=== PATIENT | female | born 1940 | race Caucasian/White ===

== ENCOUNTER 2018-05-16 17:25 | Inpatient (IN) | payer MEDICARE ==
[~2018-05-16] VITALS: Ht 163.8 cm; Wt 74.1 kg
[2018-05-16] MEDS ORDERED: KEPPRA500 MG PO (17:34)
[2018-05-16] MEDS ORDERED: BAYER CHEWABLE81 MG PO (17:34)
[2018-05-16] MEDS ORDERED: VITAMIN D31000 UNIT PO (17:34)
[2018-05-16] MEDS ORDERED: CALCIUM (17:35)
[2018-05-16] MEDS ORDERED: VITAMIN B-122500 MCG PO (17:35)
[2018-05-16 18:54] LABS: BASOPHILS 0.4 % (0-2); EOSINOPHILS 7.2 % (0-7); HEMATOCRIT 38.8 % (36.0-48.0); HEMOGLOBIN 13.3 g/dL (12-16); IMMATURE GRANULOCYTES 0.2 % (0-5); LYMPHOCYTES 27.6 % (15-50); MCH 30.9 pg (26.0-34.0); MCHC 34.3 g/dL (31.0-37.0); MEAN PLATELET VOLUME 10.5 fL (7.4-10.4); MONOCYTES 8.1 % (2-11); NEUTROPHILS 56.5 % (40-80); PLATELET COUNT 253 10x3/uL (130-400); RBC 4.31 10x6/uL (4.00-5.40); RDW 13.3 % (11.5-14.5); WBC 5.6 10x3/uL (4.8-10.8)
[2018-05-16 19:00] VITALS: BP 118/59
[2018-05-16 19:06] LABS: ALBUMIN 2.9 g/dL (3.4-5.0); ALKALINE PHOSPHATASE 74 U/L (46-116); ALT (SGPT) 24 U/L (10-68); BILIRUBIN - TOTAL 0.22 mg/dL (0.2-1.3); CALC OSMOLALITY 281 mosm/kg (275-300); CALCIUM 8.5 mg/dL (8.5-10.1); CARBON DIOXIDE 26.1 mmol/L (21.0-32.0); CHLORIDE - SERUM 106 mmol/L (98-107); CREATININE - SERUM 0.6 mg/dL (0.6-1.3); GLUCOSE 96 mg/dL (74-106); POTASSIUM - SERUM 3.8 mmol/L (3.5-5.1); PROTEIN - SERUM 6.7 g/dL (6.4-8.2); SODIUM 141 mmol/L (136-145); UREA NITROGEN 16 mg/dL (7-18); eGFR NON AFRICAN AMERICAN > 90 mL/min (90-120)
[2018-05-16 20:53] VITALS: BP 134/75
[2018-05-16 21:43] VITALS: BP 134/75
[2018-05-17] VITALS (7 sets, daily range): BP systolic 96–129; BP diastolic 52–70; Ht 163.8 cm; Wt 74.1 kg
[2018-05-17 14:45] LABS: APPEARANCE CLEAR (CLEAR); BILIRUBIN NEGATIVE (NEGATIVE); COLOR YELLOW (YELLOW); GLUCOSE NEGATIVE (NEGATIVE); KETONE NEGATIVE (NEGATIVE); NITRITE NEGATIVE (NEGATIVE); PROTEIN NEGATIVE (NEGATIVE); UROBILINOGEN NORMAL (NORMAL)
[2018-05-17 14:48] LABS: RED CELLS - URINE 0-5 /hpf (0-5); WHITE CELLS - URINE OCC /hpf (0-5)
[2018-05-18 04:00] VITALS: BP 95/56
[2018-05-18 05:54] LABS: BASOPHILS 0.3 % (0-2); EOSINOPHILS 5.6 % (0-7); HEMATOCRIT 39.4 % (36.0-48.0); HEMOGLOBIN 13.5 g/dL (12-16); IMMATURE GRANULOCYTES 0.3 % (0-5); LYMPHOCYTES 27.2 % (15-50); MCH 30.7 pg (26.0-34.0); MCHC 34.3 g/dL (31.0-37.0); MCV 89.5 fL (80.0-100.0); MEAN PLATELET VOLUME 10.7 fL (7.4-10.4); MONOCYTES 7.6 % (2-11); RDW 13.3 % (11.5-14.5); WBC 5.9 10x3/uL (4.8-10.8)
[2018-05-18 06:13] LABS: PLATELET COUNT 201 10x3/uL (130-400)
[2018-05-18 06:50] LABS: CALC OSMOLALITY 281 mosm/kg (275-300); CALCIUM 8.3 mg/dL (8.5-10.1); CARBON DIOXIDE 26.9 mmol/L (21.0-32.0); CHLORIDE - SERUM 106 mmol/L (98-107); CREATININE - SERUM 0.7 mg/dL (0.6-1.3); GLUCOSE 90 mg/dL (74-106); POTASSIUM - SERUM 4.2 mmol/L (3.5-5.1); SODIUM 142 mmol/L (136-145); eGFR NON AFRICAN AMERICAN 86 mL/min (90-120)
[2018-05-18 06:57] LABS: UREA NITROGEN 10 mg/dL (7-18)
[2018-05-18 08:39] VITALS: BP 110/70
[2018-05-18 16:41] VITALS: BP 110/63
[2018-05-18 20:00] VITALS: BP 118/57
[2018-05-19] VITALS: BP 109/59
[2018-05-19 05:38] VITALS: BP 125/77
[2018-05-19 05:44] LABS: BASOPHILS 0.2 % (0-2); EOSINOPHILS 7.6 % (0-7); HEMATOCRIT 38.6 % (36.0-48.0); HEMOGLOBIN 13.1 g/dL (12-16); IMMATURE GRANULOCYTES 0.2 % (0-5); LYMPHOCYTES 25.5 % (15-50); MCH 30.3 pg (26.0-34.0); MCHC 33.9 g/dL (31.0-37.0); MCV 89.4 fL (80.0-100.0); MEAN PLATELET VOLUME 10.6 fL (7.4-10.4); MONOCYTES 9.6 % (2-11); NEUTROPHILS 56.9 % (40-80); RBC 4.32 10x6/uL (4.00-5.40); RDW 13.4 % (11.5-14.5); WBC 5.6 10x3/uL (4.8-10.8)
[2018-05-19 05:51] LABS: PLATELET COUNT 258 10x3/uL (130-400)
[2018-05-19 06:04] LABS: CALC OSMOLALITY 279 mosm/kg (275-300); CALCIUM 8.4 mg/dL (8.5-10.1); CARBON DIOXIDE 26.8 mmol/L (21.0-32.0); CHLORIDE - SERUM 105 mmol/L (98-107); CREATININE - SERUM 0.7 mg/dL (0.6-1.3); GLUCOSE 107 mg/dL (74-106); SODIUM 140 mmol/L (136-145); eGFR NON AFRICAN AMERICAN 86 mL/min (90-120)
[2018-05-19 06:06] LABS: UREA NITROGEN 16 mg/dL (7-18)
[2018-05-19 08:45] VITALS: BP 124/70
--- NOTE | 2018-05-19 10:01 | MORECARE ---
CASE MANAGEMENT DISCHARGE SUMMARY PATIENT: EMILIANA RON UNIT: [id number] ADM DATE: 05/16/18 AGE: 77 : 42 SEX: F ROOM/BED: D.2216 AUTHOR: LETY ROCHA PHYSICIAN: REFERRING PHYSICIAN: RAMONITA PETERS MD DATE OF SERVICE: 05/19/18 Discharge Plan Patient Name: EMILIANA RON Facility: [facility]:[place] : 1940 Planned Disposition: Home with Home Health Anticipated Discharge Date: Discharge Date: Expected LOS: Initial Reviewer: [id number] Initial Review Date: 05/19/2018 Generated: 05/19/18 11:01 am DCPIA - Discharge Planning Initial Assessment Updated by [id number]: Paige Hays on 05/19/18 10:01 am * Is the patient Alert and Oriented? Yes * [facility]CP [facility] * Pharmacy [facility] * Preadmission Environment Home Alone * ADLs Independent * Equipment None * List name and contact numbers for known caregivers / representatives who currently or will assist patient after discharge: LISA GUERIN, DAUGHTER, * Community resources currently utilized None * Additional services required to return to the preadmission environment? Yes * Can the patient safely return to the preadmission environment? Yes * Has this patient been hospitalized within the prior 30 days at any hospital? No Patient Name: EMILIANA RON Page 48036 at 1001 All edits/amendments must be made on the electronic document DICTATION DATE: 05/19/18 1001 MATERIALS PLANNING ANALYST: EJNNYFER 05/19/18 1001 RPT#: [id number] DC DATE: STATUS: ADM IN [facility] [address] [place] [address] END OF REPORT
--- NOTE | 2018-05-19 10:10 | MORECARE ---
CASE MANAGEMENT DISCHARGE SUMMARY PATIENT: EMILIANA RON UNIT: [id number] ADM DATE: 05/16/18 AGE: 77 : 42 SEX: F ROOM/BED: D.2216 AUTHOR: AJ,DOC PHYSICIAN: REFERRING PHYSICIAN: RAMONITA PETERS MD DATE OF SERVICE: 05/19/18 Discharge Plan Patient Name: EMILIANA RON Facility: [facility]:[place] : 1940 Planned Disposition: Home with Home Health Anticipated Discharge Date: Discharge Date: Expected LOS: Initial Reviewer: [id number] Initial Review Date: 05/19/2018 Generated: 05/19/18 11:10 am Comments DCP- Discharge Planning Updated by [id number]: Paige Hays on 05/19/18 9:[address] Patient Name: EMILIANA RON Admission Status: ER Accout number: [id number] Admission Date: 05-16-2018 : 1940 Admission Diagnosis:CUTANEOUS ABSCESS OF LEFT LOWER LIMB Attending: RAMONITA PETERS Current LOS: 3 Anticipated DC Date: Planned Disposition: Home with Home Health Primary Insurance: MEDICARE A & B Discharge Planning Comments: CM MET WITH PATIENT ABOUT DC PLANNING/NEEDS. PATIENT STATES PLANS TO DC TO HOME WITH HH FOR WOUND CARE AND PT. ELVIN SIGNED AND PATIENT CHOSE [facility] , [facility], THEN [facility] FOR HH CHOICES. CM WILL CONTACT [facility] AND FAX APPROPRIATE DOCUMENTS. CM WILL FOLLOW AND ASSSIST NEEDED WITH DC PLANNING/NEEDS. Account Executive Sales Representative: Paige Hays DCPIA - Discharge Planning Initial Assessment Updated by [email or web address]: Paige Hays on 05/19/18 10:01 am * Is the patient Alert and Oriented? Yes * [facility] * Pharmacy [facility] * Preadmission Environment Home Alone * ADLs Independent * Equipment None * List name and contact numbers for known caregivers / representatives who currently or will assist patient after discharge: LISA GUERIN, DAUGHTER, * Community resources currently utilized None * Additional services required to return to the preadmission environment? Yes * Can the patient safely return to the preadmission environment? Yes * Has this patient been hospitalized within the prior 30 days at any hospital? No Coverage Notice Reviewer: [id number] - Paige Hays Notice Issued Date-Time: 05/19/2018 10:01 Notice Type: Patient Choice Letter Notice Delivered To: Patient Relationship to Patient: Self Wire Brush Operator Name: Delivery Method: HAND - Hand Delivered Johanna Days: Prior Verbal Notification: Recipient Understood Notice: Yes Recipient Signature: Yes Med Rec Note Co-signed by Attending: Coverage Notice Comment: [facility]OSE [facility] Last DP export: 05/19/18 9:01 am Patient Name: EMILIANA RON Page 27891 at 1010 All edits/amendments must be made on the electronic document DICTATION DATE: 05/19/18 1009 CHANNEL LIP WETTER: JENNYFER 05/19/18 1009 RPT#: [id number] DC DATE: STATUS: ADM IN [facility] [address] [place] [address] END OF REPORT
--- NOTE | 2018-05-19 10:35 | MORECARE ---
CASE MANAGEMENT DISCHARGE SUMMARY PATIENT: EMILIANA RON UNIT: [id number] ADM DATE: 05/16/18 AGE: 77 : 42 SEX: F ROOM/BED: D.2216 AUTHOR: AJ,DOC PHYSICIAN: REFERRING PHYSICIAN: RAMONITA PETERS MD DATE OF SERVICE: 05/19/18 Discharge Plan Patient Name: EMILIANA RON Facility: [facility]:[place] : 1940 Planned Disposition: Home with Home Health Anticipated Discharge Date: Discharge Date: Expected LOS: Initial Reviewer: [id number] Initial Review Date: 05/19/2018 Generated: 05/19/18 11:34 am Comments DCP- Discharge Planning Updated by [email or web address]: Paige Hays on 05/19/18 9:[address] Patient Name: EMILIANA RON Admission Status: ER Accout number: [id number] Admission Date: 05-16-2018 : 1940 Admission Diagnosis:CUTANEOUS ABSCESS OF LEFT LOWER LIMB Attending: RAMONITA PETERS Current LOS: 3 Anticipated DC Date: Planned Disposition: Home with Home Health Primary Insurance: MEDICARE A & B Discharge Planning Comments: CM MET WITH PATIENT ABOUT DC PLANNING/NEEDS. PATIENT STATES PLANS TO DC TO HOME WITH HH FOR WOUND CARE AND PT. ELVIN SIGNED AND PATIENT CHOSE [facility] , [facility], THEN [facility] FOR HH CHOICES. CM WILL CONTACT [facility] AND FAX APPROPRIATE DOCUMENTS. CM WILL FOLLOW AND ASSSIST NEEDED WITH DC PLANNING/NEEDS. Ceramist: Paige Hays DCPIA - Discharge Planning Initial Assessment Updated by [email or web address]: Paige Hays on 05/19/18 10:01 am * Is the patient Alert and Oriented? Yes * [facility]CP [facility] * Pharmacy [facility] * Preadmission Environment Home Alone * ADLs Independent * Equipment None * List name and contact numbers for known caregivers / representatives who currently or will assist patient after discharge: LISA GUERIN, DAUGHTER, * Community resources currently utilized None * Additional services required to return to the preadmission environment? Yes * Can the patient safely return to the preadmission environment? Yes * Has this patient been hospitalized within the prior 30 days at any hospital? No External Providers External Provider: [facility] Next Contact Date: Service Request Date: Service Type: Resolution: Reviewer: Comments: Coverage Notice Reviewer: [id number] Herb Paige Hays Notice Issued Date-Time: 05/19/2018 10:01 Notice Type: Patient Choice Letter Notice Delivered To: Patient Relationship to Patient: Self Crisis Worker Name: Delivery Method: HAND - Hand Delivered Johanna Days: Prior Verbal Notification: Recipient Understood Notice: Yes Recipient Signature: Yes Med Rec Note Co-signed by Attending: Coverage Notice Comment: [facility]OSE [facility] Last DP export: 05/19/18 9:10 am Patient Name: EMILIANA RON Page 38990 at 1035 All edits/amendments must be made on the electronic document DICTATION DATE: 05/19/18 1034 RECOVERY ADVOCATE: JENNYFER 05/19/18 1034 RPT#: [id number] DC DATE: STATUS: ADM IN [facility] [address] [place] [address] END OF REPORT
[2018-05-19 12:45] VITALS: BP 126/76
--- NOTE | 2018-05-19 13:37 | MORECARE ---
CASE MANAGEMENT DISCHARGE SUMMARY PATIENT: EMILIANA RON UNIT: [id number] ADM DATE: 05/16/18 AGE: 77 : 42 SEX: F ROOM/BED: D.2216 AUTHOR: AJ,DOC PHYSICIAN: REFERRING PHYSICIAN: RAMONITA PETERS MD DATE OF SERVICE: 05/19/18 Discharge Plan Patient Name: EMILIANA RON Facility: [facility]:[place] : 1940 Planned Disposition: Home with Home Health Anticipated Discharge Date: Discharge Date: Expected LOS: Initial Reviewer: [id number] Initial Review Date: 05/19/2018 Generated: 05/19/18 2:37 pm Comments DCP- Discharge Planning Updated by [email or web address]: Paige Hays on 05/19/18 12:[address] Patient Name: EMILIANA RON Admission Status: ER Accout number: [id number] Admission Date: 05-16-2018 : 1940 Admission Diagnosis:CUTANEOUS ABSCESS OF LEFT LOWER LIMB Attending: RAMONITA PETERS Current LOS: 3 Anticipated DC Date: Planned Disposition: Home with Home Health Primary Insurance: MEDICARE A & B Discharge Planning Comments: CM MET WITH PATIENT ABOUT DC PLANNING/NEEDS. PATIENT STATES PLANS TO DC TO HOME WITH HH FOR WOUND CARE AND PT. ELVIN SIGNED AND PATIENT CHOSE [facility] , [facility], THEN [facility] FOR HH CHOICES. CM WILL CONTACT [facility] AND FAX APPROPRIATE DOCUMENTS. CM WILL FOLLOW AND ASSSIST NEEDED WITH DC PLANNING/NEEDS. Assistant Program Manager: Paige Hays Appended by Paige Hays on 05/19/2018 13:34 DRESSMAKER GARMENT FITTER: PCP IS JANE DECKER AT [facility] IN [place]. DCPIA - Discharge Planning Initial Assessment Updated by [email or web address]: Paige Hays on 05/19/18 10:01 am * Is the patient Alert and Oriented? Yes * PCP [facility] [facility] * Pharmacy [facility] * Preadmission Environment Home Alone * ADLs Independent * Equipment None * List name and contact numbers for known caregivers / representatives who currently or will assist patient after discharge: LISA GUERIN, DAUGHTER, * Community resources currently utilized None * Additional services required to return to the preadmission environment? Yes * Can the patient safely return to the preadmission environment? Yes * Has this patient been hospitalized within the prior 30 days at any hospital? No Coverage Notice Reviewer: [id number] Herb Hays Notice Issued Date-Time: 05/19/2018 10:01 Notice Type: Patient Choice Letter Notice Delivered To: Patient Relationship to Patient: Self Certified Public Accountant Name: Delivery Method: HAND - Hand Delivered Johanna Days: Prior Verbal Notification: Recipient Understood Notice: Yes Recipient Signature: Yes Med Rec Note Co-signed by Attending: Coverage Notice Comment: [facility]OSE [facility] Last DP export: 05/19/18 9:34 am Patient Name: EMILIANA RON Page 57530 at 1337 All edits/amendments must be made on the electronic document DICTATION DATE: 05/19/181335 PROCESS CONTROL BOARD OPERATOR: JENNYFER 05/19/186 RPT#: [id number] DC DATE: STATUS: ADM IN [facility] [address] [place] [address] END OF REPORT
--- NOTE | 2018-05-19 15:14 | MORECARE ---
CASE MANAGEMENT DISCHARGE SUMMARY PATIENT: EMILIANA RON UNIT: [id number] ADM DATE: 05/16/18 AGE: 77 : 42 SEX: F ROOM/BED: D.2216 AUTHOR: AJ,DOC PHYSICIAN: REFERRING PHYSICIAN: RAMONITA PETERS MD DATE OF SERVICE: 05/19/18 Discharge Plan Patient Name: EMILIANA RON Facility: [facility]:[place] : 1940 Planned Disposition: Home with Home Health Anticipated Discharge Date: Discharge Date: Expected LOS: Initial Reviewer: [id number] Initial Review Date: 05/19/2018 Generated: 05/19/18 4:14 pm Comments DCP- Discharge Planning Updated by [email or web address]: Paige Hays on 05/19/18 2:[address] Patient Name: EMILIANA RON Admission Status: ER Accout number: [id number] Admission Date: 05-16-2018 : 1940 Admission Diagnosis:CUTANEOUS ABSCESS OF LEFT LOWER LIMB Attending: RAMONITA PETERS Current LOS: 3 Anticipated DC Date: Planned Disposition: Home with Home Health Primary Insurance: MEDICARE A & B Discharge Planning Comments: CM MET WITH PATIENT ABOUT DC PLANNING/NEEDS. PATIENT STATES PLANS TO DC TO HOME WITH HH FOR WOUND CARE AND PT. ELVIN SIGNED AND PATIENT CHOSE [facility] , [facility], THEN [facility] FOR HH CHOICES. CM WILL CONTACT [facility] AND FAX APPROPRIATE DOCUMENTS. CM WILL FOLLOW AND ASSSIST NEEDED WITH DC PLANNING/NEEDS. Transit Department Clerk: Paige Hays Appended by Paige Hays on 05/19/2018 13:34 FOREST PATHOLOGIST: PCP IS JANE DECKER AT [employer] [facility] IN [place]. Appended by Paige Hays on 05/19/2018 15:07 FOREST PATHOLOGIST: JEREMIAH ROBB WITH [facility] CALLED AND STATES THEY WILL TAKE PATIENT WHEN SHE IS DC'D. CALL THEM WHEN SHE IS DC'D. DCPIA - Discharge Planning Initial Assessment Updated by [email or web address]: Paige Hays on 05/19/18 10:01 am * Is the patient Alert and Oriented? Yes * PCP [facility] * Pharmacy [facility] * Preadmission Environment Home Alone * ADLs Independent * Equipment None * List name and contact numbers for known caregivers / representatives who currently or will assist patient after discharge: LISA GUERIN, DAUGHTER, * Community resources currently utilized None * Additional services required to return to the preadmission environment? Yes * Can the patient safely return to the preadmission environment? Yes * Has this patient been hospitalized within the prior 30 days at any hospital? No Coverage Notice Reviewer: [id number] Herb Hays Notice Issued Date-Time: 05/19/2018 10:01 Notice Type: Patient Choice Letter Notice Delivered To: Patient Relationship to Patient: Self Brewing Director Name: Delivery Method: HAND - Hand Delivered Johanna Days: Prior Verbal Notification: Recipient Understood Notice: Yes Recipient Signature: Yes Med Rec Note Co-signed by Attending: Coverage Notice Comment: [facility]OSE [facility] Last DP export: 05/19/18 12:37 pm Patient Name: EMILIANA RON Page 17863 at 1514 All edits/amendments must be made on the electronic document DICTATION DATE: 05/19/181512 FITNESS TECHNICIAN: JENNYFER 05/19/181512 RPT#: [id number] DC DATE: STATUS: ADM IN [facility] [address] [place] [address] END OF REPORT
[2018-05-19 16:37] VITALS: BP 119/66
[2018-05-19 20:00] VITALS: BP 135/69
[2018-05-20 04:00] VITALS: BP 122/76
[2018-05-20 06:08] LABS: BASOPHILS 0.2 % (0-2); EOSINOPHILS 9.3 % (0-7); HEMATOCRIT 40.2 % (36.0-48.0); HEMOGLOBIN 13.8 g/dL (12-16); IMMATURE GRANULOCYTES 0.2 % (0-5); LYMPHOCYTES 23.6 % (15-50); MCH 30.5 pg (26.0-34.0); MCHC 34.3 g/dL (31.0-37.0); MCV 88.7 fL (80.0-100.0); MEAN PLATELET VOLUME 10.6 fL (7.4-10.4); MONOCYTES 8.3 % (2-11); NEUTROPHILS 58.4 % (40-80); PLATELET COUNT 276 10x3/uL (130-400); RBC 4.53 10x6/uL (4.00-5.40); RDW 13.4 % (11.5-14.5)
[2018-05-20 06:22] LABS: CALC OSMOLALITY 288 mosm/kg (275-300); CALCIUM 8.2 mg/dL (8.5-10.1); CHLORIDE - SERUM 108 mmol/L (98-107); CREATININE - SERUM 0.6 mg/dL (0.6-1.3); GLUCOSE 92 mg/dL (74-106); POTASSIUM - SERUM 3.9 mmol/L (3.5-5.1); SODIUM 144 mmol/L (136-145); UREA NITROGEN 18 mg/dL (7-18); eGFR NON AFRICAN AMERICAN > 90 mL/min (90-120)
[2018-05-20 08:45] VITALS: BP 138/73
[2018-05-20] MEDS ORDERED: DOXYCYCLINE HY100 M2 PO (10:58)
[2018-05-20] MEDS ORDERED: MIRALAX17 GM PO (11:01)
[2018-05-20] MEDS ORDERED: ULTRAM50 MG PO (11:01)
--- NOTE | 2018-05-20 11:44 | MORECARE ---
CASE MANAGEMENT DISCHARGE SUMMARY PATIENT: EMILIANA RON UNIT: [id number] ADM DATE: 05/16/18 AGE: 77 : 42 SEX: F ROOM/BED: D.2216 AUTHOR: AJDOC PHYSICIAN: REFERRING PHYSICIAN: RAMONITA PETERS MD DATE OF SERVICE: 05/20/18 Discharge Plan Patient Name: EMILIANA RON Facility: [facility]:[place] : 1940 Planned Disposition: Home with Home Health Anticipated Discharge Date: 05/20/18 Discharge Date: Expected LOS: 4 Initial Reviewer: [id number] Initial Review Date: 05/19/2018 Generated: 05/20/18 12:44 pm Comments DCP- Discharge Planning Updated by [email or web address]: Paige Hays on 05/20/18 10:[address] Patient Name: EMILIANA RON Encounter No: [id number] : 1940 Primary Insurance: MEDICARE A & B Anticipated DC Date: 05-20-2018 Planned Disposition: Home with Home Health External Planned Provider: : DCP follow-up note: Patient and family in agreement with discharge plan. PATIENT TO BE DISCHARGED HOME. PATIENT TO CALL [facility] AT [phone] WHEN SHE GETS HOME. No changes to plan. Case management will follow and assist as needed. I SPOKE WITH HH TODAY AND FAXED FINAL PAPERS TO THEM AND LET BASHIR KNOW PATIENT WOULD DC TODAY. Paige Hays DCP- Discharge Planning Updated by [email or web address]: Paige Hays on 05/19/18 2:[address] Patient Name: EMILIANA RON Admission Status: ER Accout number: [id number] Admission Date: 05-16-2018 : 1940 Admission Diagnosis:CUTANEOUS ABSCESS OF LEFT LOWER LIMB Attending: RAMONITA PETERS Current LOS: 3 Anticipated DC Date: Planned Disposition: Home with Home Health Primary Insurance: MEDICARE A & B Discharge Planning Comments: CM MET WITH PATIENT ABOUT DC PLANNING/NEEDS. PATIENT STATES PLANS TO DC TO HOME WITH HH FOR WOUND CARE AND PT. ELVIN SIGNED AND PATIENT CHOSE [facility] , [facility], THEN [facility] FOR HH CHOICES. CM WILL CONTACT [facility] AND FAX APPROPRIATE DOCUMENTS. CM WILL FOLLOW AND ASSSIST NEEDED WITH DC PLANNING/NEEDS. Pharmacy Director: Paige Hays Appended by Paige Hays on 05/19/2018 13:34 CATTLE BROKER: PCP IS JANE DECKER AT [employer] IN [place]. Appended by Paige Hays on 05/19/2018 15:07 CATTLE BROKER: JEREMIAH ROBB WITH [facility] CALLED AND STATES THEY WILL TAKE PATIENT WHEN SHE IS DC'D. CALL THEM WHEN SHE IS DC'D. DCPIA - Discharge Planning Initial Assessment Updated by [id number]: Paige Hays on 05/19/18 10:01 am * Is the patient Alert and Oriented? Yes * PCP [facility] [employer] * Pharmacy [facility] * Preadmission Environment Home Alone * ADLs Independent * Equipment None * List name and contact numbers for known caregivers / representatives who currently or will assist patient after discharge: LISA GUERIN, DAUGHTER, * Community resources currently utilized None * Additional services required to return to the preadmission environment? Yes * Can the patient safely return to the preadmission environment? Yes * Has this patient been hospitalized within the prior 30 days at any hospital? No Coverage Notice Reviewer: [id number] - Paige Hays Notice Issued Date-Time: 05/19/2018 10:01 Notice Type: Patient Choice Letter Notice Delivered To: Patient Relationship to Patient: Self Stitch Bonding Machine Drawer In Name: Delivery Method: HAND - Hand Delivered Johanna Days: Prior Verbal Notification: Recipient Understood Notice: Yes Recipient Signature: Yes Med Rec Note Co-signed by Attending: Coverage Notice Comment: [facility]OSE [facility] Last DP export: 05/19/18 2:14 pm Patient Name: EMILIANA RON Page 59459 at 1144 All edits/amendments must be made on the electronic document DICTATION DATE: 05/20/18 1143 SEAMLESS TUBE MILL OPERATOR: JENNYFER 05/20/18 1143 RPT#: [id number] DC DATE: STATUS: ADM IN [facility] [address] [place] [address] END OF REPORT
--- NOTE | 2018-05-20 16:51 | MORECARE ---
CASE MANAGEMENT DISCHARGE SUMMARY PATIENT: EMILIANA RON UNIT: [id number] ADM DATE: 05/16/18 AGE: 77 : 42 SEX: F ROOM/BED: D.2216 AUTHOR: AJDOC PHYSICIAN: REFERRING PHYSICIAN: RAMONITA PETERS MD DATE OF SERVICE: 05/20/18 Discharge Plan Patient Name: EMILIANA RON Facility: [facility]:[place] : 1940 Planned Disposition: Home with Home Health Anticipated Discharge Date: 05/20/18 Discharge Date: 05/20/2018 Expected LOS: 4 Initial Reviewer: [id number] Initial Review Date: 05/19/2018 Generated: 05/20/18 5:51 pm Comments DCP- Discharge Planning Updated by [email or web address]: Paige Hays on 05/20/18 3:[address] Patient Name: EMILIANA RON Encounter No: [id number] : 1940 Primary Insurance: MEDICARE A & B Anticipated DC Date: 05-20-2018 Planned Disposition: Home with Home Health External Planned Provider: : DCP follow-up note: Patient and family in agreement with discharge plan. PATIENT TO BE DISCHARGED HOME. PATIENT TO CALL [facility] AT [phone] WHEN SHE GETS HOME. No changes to plan. Case management will follow and assist as needed. I SPOKE WITH HH TODAY AND FAXED FINAL PAPERS TO THEM AND LET BASHIR KNOW PATIENT WOULD DC TODAY. Paige Hays Appended by Paige Hays on 05/20/2018 16:49 HAT IRONER: [facility] CALLED AND WILL SEE PATIENT TOMORROW (SAT). DCP- Discharge Planning Updated by [id number]: Paige Hays on 05/19/18 2:[address] Patient Name: EMILIANA RON Admission Status: ER Accout number: [id number] Admission Date: 05-16-2018 : 1940 Admission Diagnosis:CUTANEOUS ABSCESS OF LEFT LOWER LIMB Attending: RAMONITA PETERS Current LOS: 3 Anticipated DC Date: Planned Disposition: Home with Home Health Primary Insurance: MEDICARE A & B Discharge Planning Comments: CM MET WITH PATIENT ABOUT DC PLANNING/NEEDS. PATIENT STATES PLANS TO DC TO HOME WITH HH FOR WOUND CARE AND PT. ELVIN SIGNED AND PATIENT CHOSE [facility] , [facility], THEN [facility] FOR HH CHOICES. CM WILL CONTACT [facility] AND FAX APPROPRIATE DOCUMENTS. CM WILL FOLLOW AND ASSSIST NEEDED WITH DC PLANNING/NEEDS. Hog Trader: Paige Hays Appended by Paige Hays on 05/19/2018 13:34 HAT IRONER: PCP IS JANE DECKER AT [employer] IN [place]. Appended by Paige Hays on 05/19/2018 15:07 HAT IRONER: JEREMIAH ROBB WITH [facility] CALLED AND STATES THEY WILL TAKE PATIENT WHEN SHE IS DC'D. CALL THEM WHEN SHE IS DC'D. DCPIA - Discharge Planning Initial Assessment Updated by [id number]: Paige Hays on 05/19/18 10:01 am * Is the patient Alert and Oriented? Yes * PCP [facility] [employer] * Pharmacy [facility] * Preadmission Environment Home Alone * ADLs Independent * Equipment None * List name and contact numbers for known caregivers / representatives who currently or will assist patient after discharge: LISA GUERIN, DAUGHTER, * Community resources currently utilized None * Additional services required to return to the preadmission environment? Yes * Can the patient safely return to the preadmission environment? Yes * Has this patient been hospitalized within the prior 30 days at any hospital? No Coverage Notice Reviewer: [id number] Herb Hays Notice Issued Date-Time: 05/19/2018 10:01 Notice Type: Patient Choice Letter Notice Delivered To: Patient Relationship to Patient: Self Cash Controller Name: Delivery Method: HAND - Hand Delivered Johanna Days: Prior Verbal Notification: Recipient Understood Notice: Yes Recipient Signature: Yes Med Rec Note Co-signed by Attending: Coverage Notice Comment: [facility]OSE [facility] Reviewer: [id number] Herb Hays Notice Issued Date-Time: 05/20/2018 11:40 Notice Type: IM Discharge Notice Notice Delivered To: Patient Relationship to Patient: Self Cash Controller Name: Delivery Method: HAND - Hand Delivered Johanna Days: Prior Verbal Notification: Recipient Understood Notice: Yes Recipient Signature: Yes Med Rec Note Co-signed by Attending: Coverage Notice Comment: Last DP export: 05/20/18 10:44 am Patient Name: EMILIANA RON Page 35564 at 1651 All edits/amendments must be made on the electronic document DICTATION DATE: 05/20/181650 ACCOUNT MANAGER SALES REPRESENTATIVE: JENNYFER 05/20/181650 RPT#: [id number] DC DATE:05/20/18 STATUS: DIS IN [facility] [address] [place] [address] END OF REPORT
--- NOTE | 2018-05-23 13:11 | MORECARE ---
CASE MANAGEMENT DISCHARGE SUMMARY PATIENT: EMILIANA RON UNIT: [id number] ADM DATE: 05/16/18 AGE: 77 : 44 SEX: F ROOM/BED: D.2216 AUTHOR: LETY ROCHA PHYSICIAN: REFERRING PHYSICIAN: RAMONITA PETERS MD DATE OF SERVICE: 05/23/18 Discharge Plan Patient Name: EMILIANA RON Facility: [facility]:[place] : 1940 Planned Disposition: Home with Home Health Anticipated Discharge Date: 05/20/18 Discharge Date: 05/20/2018 Expected LOS: 4 Initial Reviewer: [email or web address] Initial Review Date: 05/19/2018 Generated: 05/23/18 2:11 pm Comments DCP- Discharge Planning Updated by [email or web address]: Paige Hays on 05/20/18 3:[address] Patient Name: EMILIANA RON Encounter No: [id number] : 1940 Primary Insurance: MEDICARE A & B Anticipated DC Date: 05-20-2018 Planned Disposition: Home with Home Health External Planned Provider: : DCP follow-up note: Patient and family in agreement with discharge plan. PATIENT TO BE DISCHARGED HOME. PATIENT TO CALL [facility] AT [phone] WHEN SHE GETS HOME. No changes to plan. Case management will follow and assist as needed. I SPOKE WITH HH TODAY AND FAXED FINAL PAPERS TO THEM AND LET BASHIR KNOW PATIENT WOULD DC TODAY. Paige Hays Appended by Paige Hays on 05/20/2018 16:49 DIGITAL PRODUCER: [facility] CALLED AND WILL SEE PATIENT TOMORROW (SAT). DCP- Discharge Planning Updated by [id number]: Paige Hays on 05/19/18 2:[address] Patient Name: EMILIANA RON Admission Status: ER Accout number: [id number] Admission Date: 05-16-2018 : 1940 Admission Diagnosis:CUTANEOUS ABSCESS OF LEFT LOWER LIMB Attending: RAMONITA PETERS Current LOS: 3 Anticipated DC Date: Planned Disposition: Home with Home Health Primary Insurance: MEDICARE A & B Discharge Planning Comments: CM MET WITH PATIENT ABOUT DC PLANNING/NEEDS. PATIENT STATES PLANS TO DC TO HOME WITH HH FOR WOUND CARE AND PT. [facility] SIGNED AND PATIENT CHOSE [facility], THEN [facility] FOR HH CHOICES. CM WILL CONTACT [facility] AND FAX APPROPRIATE DOCUMENTS. CM WILL FOLLOW AND ASSSIST NEEDED WITH DC PLANNING/NEEDS. Community Service Patrol Officer: Paige Hays Appended by Paige Hays on 05/19/2018 13:34 DIGITAL PRODUCER: PCP IS JANE DECKER AT [facility] IN [place]. Appended by Paige Hays on 05/19/2018 15:07 DIGITAL PRODUCER: JEREMIAH ROBB WITH [facility] CALLED AND STATES THEY WILL TAKE PATIENT WHEN SHE IS DC'D. CALL THEM WHEN SHE IS DC'D. DCPIA - Discharge Planning Initial Assessment Updated by [id number]: Paige Hays on 05/19/18 10:01 am * Is the patient Alert and Oriented? Yes * PCP [facility] * Pharmacy [facility] * Preadmission Environment Home Alone * ADLs Independent * Equipment None * List name and contact numbers for known caregivers / representatives who currently or will assist patient after discharge: LISA GUERIN, DAUGHTER, * Community resources currently utilized None * Additional services required to return to the preadmission environment? Yes * Can the patient safely return to the preadmission environment? Yes * Has this patient been hospitalized within the prior 30 days at any hospital? No Coverage Notice Reviewer: [id number] Herb Hays Notice Issued Date-Time: 05/19/2018 10:01 Notice Type: Patient Choice Letter Notice Delivered To: Patient Relationship to Patient: Self Shell Machine Operator Name: Delivery Method: HAND - Hand Delivered Johanna Days: Prior Verbal Notification: Recipient Understood Notice: Yes Recipient Signature: Yes Med Rec Note Co-signed by Attending: Coverage Notice Comment: [facility] Reviewer: [id number] Herb Hays Notice Issued Date-Time: 05/20/2018 11:40 Notice Type: IM Discharge Notice Notice Delivered To: Patient Relationship to Patient: Self Shell Machine Operator Name: Delivery Method: HAND - Hand Delivered Johanna Days: Prior Verbal Notification: Recipient Understood Notice: Yes Recipient Signature: Yes Med Rec Note Co-signed by Attending: Coverage Notice Comment: Last DP export: 05/20/18 3:51 pm Patient Name: EMILIANA RON Page 20208 at 1311 All edits/amendments must be made on the electronic document DICTATION DATE: 05/23/18 1311 RESOURCE CONSERVATIONIST: [email or web address] 05/23/18 1311 RPT#: [id number] DC DATE:05/20/18 STATUS: DIS IN [facility] [address] [place] [address] END OF REPORT
== END 2018-05-20 13:50 | disposition home health service (06) | DRG 603 ==
LOC: D.ER 17:25 → D.MS 19:57
PROVIDERS: Emergency Medicine; ADMIT Internal Medicine Nephrology
DX: L02.416 Cutaneous abscess of left lower limb (principal); L02.31 Cutaneous abscess of buttock; B95.62 Methicillin resistant Staphylococcus aureus infection as the cause of diseases classified elsewhere; G40.909 Epilepsy, unspecified, not intractable, without status epilepticus

== ENCOUNTER → 2020-08-12 12:33 | Outpatient (CLI) | payer MEDICARE ==
[2018-05-17 09:10] VITALS: BMI 27.6
[~2020-08-12 12:33] MED LIST: BAYER CHEWABLE81 MG PO; CALCIUM; DOXYCYCLINE HY100 M2 PO; KEPPRA500 MG PO; MIRALAX17 GM PO; ULTRAM50 MG PO; VITAMIN B-122500 MCG PO; VITAMIN D31000 UNIT PO
== END | disposition home or self-care (01) ==
LOC: D.HCCECHO 12:33
PROVIDERS: ATTEND Internal Medicine Interventional Cardiology
DX: R01.1 Cardiac murmur, unspecified (principal)

== ENCOUNTER → 2020-09-05 12:35 | Outpatient (CLI) | payer MEDICARE ==
[2018-05-17 09:10] VITALS: BMI 27.6
== END | disposition home or self-care (01) ==
LOC: D.MRI 12:35
PROVIDERS: ATTEND Psychiatry & Neurology Neurology
DX: R56.9 Unspecified convulsions (principal); G40.209 Localization-related (focal) (partial) symptomatic epilepsy and epileptic syndromes with complex partial seizures, not intractable, without status epilepticus